=== PATIENT | female | born 1990 | race Caucasian/White ===

== ENCOUNTER 2017-06-24 02:56 | Observation (INO) | payer OTHER ==
[~2017-06-24] VITALS: Ht 147.3 cm; Wt 108.9 kg
[~2017-06-24 02:56] MED LIST: ALBUTEROL0.09 MG/A1 INH; BENTYL10 MG PO; BENTYL20 M1 PO; CYCLOBENZAPRINE5 M2 PO; DULOXETINE HCL30 MG PO; FLUTICASONE PRO16 GM NASB; GUAIFENESIN-COD10 ML PO; MEDROL DOSEPAK1 PAC PO; METOCLOPRAMIDE H5 MG PO; NASONEX0.05 MG/Ac NAS; NASONEX0.05 MG/Ac PO; NITROFURANTOIN100 M4 PO; PERCOCET 325 MG1 TA2 PO; PROAIR HFA8.5 GM INH; ROBITUSSIN W/CO10 ML PO; SKELAXIN800 MG PO; SUMATRIPTAN SU100 M1 PO; TESSALON PERLE100 M1 PO; TESSALON PERLE100 MG PO; VICODIN5-300 PO; ZITHROMAX Z-PA250 M1 PO; ZITHROMAX250 M2 PO; ZITHROMAX500 M2 PO; ZOFRAN ODT4 MG SL; ZOFRAN4 M1 PO; ZOFRAN4 M1 SL
[2017-06-24 03:52] LABS: ABSOLUTE BASOPHIL COUNT 0 /CUMM (0.0-0.2); ABSOLUTE EOSINOPHIL COUNT 0.1 /CUMM (0.0-0.7); ABSOLUTE GRANULOCYTE CT 14.2 /CUMM (1.4-6.5); ABSOLUTE LYMPH COUNT 1.7 /CUMM (1.2-3.4); ABSOLUTE MONOCYTE COUNT 0.5 /CUMM (0.10-0.60); BASOPHIL % 0.1 % (0.0-2.0); EOSINOPHIL % 0.8 % (0-5); GRANULOCYTE % 85.8 % (42.2-75.2); HEMATOCRIT 45.5 % (37-47); MEAN CORPUSCULAR HGB 28.9 PG (27.0-31.0); MEAN CORPUSCULAR HGB CONC 32.9 G/DL (33.0-37.0); MEAN CORPUSCULAR VOLUME 87.9 FL (81.0-99.0); MEAN PLATELET VOLUME 8.9 FL (7.4-10.4); PLATELET COUNT 323 /CUMM (130-400); RBC DISTRIBUTION WIDTH 14.5 % (11.5-14.5); RED BLOOD CELL CT 5.18 /CUMM (4.20-5.40)
--- NOTE | 2017-06-24 03:58 | ED GI/GU/ABDOMINAL COMPLAINT ---
History of Present Illness General Chief Complaint: Abdominal Pain/Flank Pain Stated Complaint: "ABD PAIN VOMITING BLOOD SINCE 2199" Source: patient Exam Limitations: no limitations Vital Signs & Intake/Output Vital Signs & Intake/Output Vital Signs Date Time Temp Pulse Resp B/P B/P Pulse O2 O2 Flow FiO2 Mean Ox Delivery Rate 06/24 1445 98.3 88 18 108/64 98 Room Air 06/24 1434 98.5 77 20 108/78 98 Room Air 06/24 1128 99.4 76 18 110/60 99 Room Air 06/24 0306 99.0 118 20 111/81 97 Room Air Allergies Coded Allergies: Penicillins (ANAPHYLAXIS 09/09/15) amoxicillin (ANAPHYLAXIS 09/09/15) pineapple (ANAPHYLAXIS 09/09/15) morphine (CHEST PAIN, ITCHINESS 12/14/15) Triage Note: PT TO ED C/O +N/V SINCE 2199. STATES ATE "A 4 PIECE" AT [employer] AT 7 PM, SHARP EPIGASTRIC PAIN STARTED AT 2100, THEN +N/V STARTED AT 0. STATES "THE FIRST TIME I VOMITED, IT HAD BLOOD IN IT AND SOME OF IT CAME OUT OF MY NOSE" PT CJURRENTLY VOMITTING BILIOUS GREEN Triage Nurses Notes Reviewed? yes ? N Is pt currently ? No HPI: Patient presents for evaluation of a sudden onset of severe constant sharp abdominal pain radiating to her back that began about 9 PM last night. Patient denies any associated fever or cold symptoms L call use drug use diarrhea or dysuria. She has had a similar episode with a prior case of pancreatitis although this episode is more severe and involves her back. Nothing seems to make her feel better. (Shaye SORENSEN,Gomez Cuellar) Reconcile Medications Albuterol Sulfate (Proair Hfa) 90 MCG HFA.AER.AD 2 PUF INH Q4-6 PRN PRN WHEEZING Doxycycline Hyclate 100 MG TABLET 1 TAB PO BID ABX (Reported) Methylprednisolone (Unknown Strength) TAB.DS.PK (Unknown Dose) UNKNOWN ( Reported) Sumatriptan Succinate 100 MG TABLET 1 TAB PO AD PRN MIGRAINES (Reported) may repeat in 2 hours; do not exceed 200 mg in 24 hours (John SORENSEN,Kamaljit) Past History Travel History Traveled to [place] past 21 day No Medical History Any Pertinent Medical History? 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 No (Gomez Cr MD) Review of Systems Review of Systems Constitutional: Reports: no symptoms. EENTM: Reports: no symptoms. Respiratory: Reports: no symptoms. Cardiovascular: Reports: no symptoms. GI: Reports: see HPI. Genitourinary: Reports: no symptoms. Musculoskeletal: Reports: no symptoms. Skin: Reports: no symptoms. Neurological/Psychological: Reports: no symptoms. Hematologic/Endocrine: Reports: no symptoms. Immunologic/Allergic: Reports: no symptoms. All Other Systems: Reviewed and Negative (Shaye SORENSEN,Gomez Cuellar) Physical Exam Physical Exam Gastrointestinal: SEE BELOW Comments: Gen.: Well-nourished, well-developed, no acute respiratory distress. Overweight. Moderate distress secondary to abdominal pain. Head: Normocephalic, atraumatic. Eyes: Normal inspection bilaterally Ears: Normal inspection bilaterally Nose: Normal inspection Throat/mouth : Moist mucosa Neck: Supple, full range of motion, no goiter Heart: Regular rate and rhythm, no murmurs rubs or gallops Lungs: Clear to auscultation bilaterally with normal air entry Chest: Nontender Back: Normal range of motion Abdomen: Soft, epigastric tenderness with decreased voluntary guarding but no rebound, nondistended, decreased bowel sounds Extremities: Normal range of motion grossly, equal radial pulses, no cyanosis clubbing or edema Neurologic: Cranial nerves grossly intact, speech is clear Skin: warm and dry Psychiatric: Calm, cooperative, no apparent delusions or hallucinations Core Measures ACS in differential dx? No Sepsis Present: No Sepsis Focused Exam Completed? No (Shaye SORENSEN,Gomez Cuellar) Progress Differential Diagnosis: GASTRITIS, GASTROENTERITIS, PEPTIC ULCER DISEASE, PANCREATITIS, BOWEL OBSTRUCTION Plan of Care: Orders Procedure Date/time Status CBC WITHOUT DIFFERENTIAL 06/25 599 Active BASIC ELECTROLYTES PLUS BUN&CR 06/25 599 Active Regular Diet 06/24 D Active Pathway - chart 06/24 1544 Active House Staff 06/24 1544 Active Vital Signs 06/24 1451 Active Teach/Educate 06/24 1451 Active Pain Treatment and Response 06/24 1451 Active Nutritional Intake, Monitor 06/24 1451 Active Isolation 06/24 1451 Active Intake & Output 06/24 1451 Active Patient Care Conference 06/24 1451 Active Activity/Ambulation 06/24 1451 Active URINE DRUG SCREEN FOR ER ONLY 06/24 1304 Complete URINALYSIS 06/24 1304 Complete Patient Data 06/24 1303 Active OXYGEN SETUP (GEN) 06/24 1152 Active Saline Lock 06/[address] in observation 06/24 1152 Active Vital Signs 06/24 1152 Active Activity/Ambulation 06/24 1152 Active Code Status 06/24 1152 Active Add-on Test (ER Only) 06/24 0358 Active Intake & Output 06/24 0342 Active HUMAN BETA HCG SCREEN 06/24 0340 Complete COMPREHENSIVE METABOLIC PANEL 06/24 0340 Complete CBC WITHOUT DIFFERENTIAL 06/24 0340 Complete LIPASE 06/24 0335 Complete VTE Mechanical Prophylaxis 06/24 UNK Active Current Medications Sig/Ubaldo Start time Last Medication Dose Stop Time Status Admin Dicyclomine HCl 20 MG 4 TIMES/DAY 06/24 1800 UNVr (Bentyl) Acetaminophen 650 MG Q6P PRN 06/24 1545 UNVr (Tylenol) Ketorolac 30 MG ONCE ONE 06/24 1545 UNVr Tromethamine 06/24 1546 (Toradol) Ketorolac 15 MG Q6P PRN 06/24 1545 UNVr Tromethamine (Toradol) Oxycodone HCl 10 MG Q6P PRN 06/24 1545 CANr (Roxicodone) Prochlorperazine 5 MG Q6P PRN 06/24 1545 UNVr (Compazine) Sodium Chloride 1,000 ML .[id number] 06/24 1545 UNVr (Normal Saline 0.9%) 06/25 1824 Famotidine 20 MG BID 06/24 1540 UNVr (Pepcid) Morphine Sulfate 4 MG ONCE ONE 06/24 0400 CAN (Morphine) 06/24 0401 Laboratory Tests 06/24/17 1431: Urine Opiates Screen < 100.00, Methadone Screen 71, Barbiturate Screen < 60, Ur Phencyclidine Scrn < 6.00, Amphetamines Screen < 100, U Benzodiazepines Scrn < 85, Urine Cocaine Screen < 50, Urine Cannabis Screen < 5.00, Urine Color YEL, Urine Clarity CLEAR, Urine pH 7.0, Ur Specific [place] 1.020, Urine Protein NEG, Urine Ketones NEG, Urine Nitrite NEG, Urine Bilirubin NEG, Urine Urobilinogen 1.0, Ur Leukocyte Esterase NEG, Ur Microscopic EXAM NOT REQUIRED, Urine Hemoglobin NEG, Urine Glucose NEG 06/24/17 0528: Anion Gap 12, Estimated GFR > 60, BUN/Creatinine Ratio 26.0 H, Glucose 106 H, Calcium 8.0 L, Total Bilirubin 0.6, AST 19, ALT 40, Alkaline Phosphatase 61, Total Protein 6.1 L, Albumin 3.4 L, Globulin 2.7, Albumin/Globulin Ratio 1.3, Lipase 46, Total Beta HCG NEGATIVE 06/24/17 0335: CBC w Diff NO MAN DIFF REQ, RBC 5.18, MCV 87.9, MCH 28.9, MCHC 32.9 L, RDW 14.5 , MPV 8.9, Gran % 85.8 H, Lymphocytes % 10.1 L, Monocytes % 3.2, Eosinophils % 0.8, Basophils % 0.1, Absolute Granulocytes 14.2 H, Absolute Lymphocytes 1.7, Absolute Monocytes 0.5, Absolute Eosinophils 0.1, Absolute Basophils 0 Initial ED EKG: none Comments: 06/24/2017 6:57:07 AM 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 (Shaye SORENSEN,Gomez Cuellar) Diagnostic Imaging: Viewed by Me: CT Scan. Discussed w/RAD: CT Scan. Radiology Impression: 1. There is hepatic steatosis. 2. The gallbladder is surgically absent. 3. Otherwise, unremarkable examination. (John SORENSEN,Kamaljit) Departure Departure Disposition: STILL A PATIENT Condition: Stable Clinical Impression Primary Impression: Vomiting Secondary Impressions: Abdominal pain Referrals: Terri Schmidt DO (PCP/Family) Departure Forms: Customer Survey General Discharge Information (Shaye SORENSEN,Gomez Cuellar) Admission Note Documentation of Exam: Documentation of any treatments & extenuating circumstances including Concerns Regarding Discharge (functional status, medication knowledge or non-compliance, living conditions, etc.) that warrant an admission rather than observation: Observation Note Spoke With: Kelley Hand MD Physician Advisor Notified: KAM SORENSEN,DONG Kwan Place Patient In: Non-ED OBS Care Area Rationale for Observation: My rational for observation is as follows NPL IV fluids IV antiemetics and IV analgesia advance diet medication adjustment continuing care discharge planning. (John SORENSEN,Kamaljit)
[2017-06-24 04:31] LABS: WHITE BLOOD CELL COUNT 16.5 /CUMM (4.8-10.8)
--- NOTE | 2017-06-24 08:28 | CT SCAN REPORT ---
EXAMINATION: CT ABDOMEN AND PELVIS WITH CONTRAST CLINICAL INFORMATION: Epigastric pain; history of pancreatitis. COMPARISON: CT abdomen and pelvis dated 09/09/2015. TECHNIQUE: Multidetector volumetric imaging was performed of the abdomen and pelvis following IV administration of 80 mL of Optiray 320 intravenous contrast. Sagittal and coronal reformatted images were obtained on the technologist's workstation. DLP: 1362.31 mGy-cm FINDINGS: LUNG BASES: The visualized lung bases are unremarkable. LIVER, GALLBLADDER, AND BILIARY TREE: The liver is normal in size, shape, and diminished in attenuation. No focal hepatic lesion or biliary ductal dilatation is present. The gallbladder is surgically absent. PANCREAS: Unremarkable. No focal enlargement or differential enhancement is seen. There is no mass. No peripancreatic fat stranding or acute fluid collection seen. SPLEEN: Unremarkable. ADRENAL GLANDS: Unremarkable. KIDNEYS AND URETERS: The kidneys are normal in size, shape, and attenuation. No hydronephrosis, hydroureter, or calculi seen. No perinephric stranding. BLADDER: Unremarkable. GASTROINTESTINAL TRACT: The small and large bowel are unremarkable. The appendix is unremarkable. ABDOMINAL WALL: There is a very small fat-containing umbilical hernia. LYMPH NODES: There are shotty, nonpathologically enlarged mesenteric lymph nodes. No sizable abdominopelvic lymphadenopathy is seen. VASCULAR: Unremarkable. PELVIC VISCERA: Unremarkable. OSSEOUS STRUCTURES: Unremarkable. IMPRESSION: 1. There is hepatic steatosis. 2. The gallbladder is surgically absent. 3. Otherwise, unremarkable examination.
[2017-06-24] MEDS ORDERED: DOXYCYCLINE HY100 M4 PO (12:25)
[2017-06-24] MEDS ORDERED: METHYLPREDNISOLO4 M2 (12:25)
--- NOTE | 2017-06-24 14:04 | History & Physical ---
Sina Orozco 06/24/17 1403: General Information and HPI MD Statement: I have seen and personally examined PADMAJA CALLOWAY and documented this H&P. The patient is a 27 year old F who presented with a patient stated chief complaint of [nausea]. Source of Information: patient Exam Limitations: no limitations History of Present Illness: Ms. Calloway is a 27-year-old female with significant past medical history of asthma and migraine disorder who presents to [facility] emergency department with complaints of nausea, vomiting and abdominal pain. She states that it started last night, approximately 9pm, 2 or 3 hours after eating fast food. She states that the nausea started first, followed by vomiting and then abdominal pain. She states she has had multiple bouts of vomiting, too numerous to count. Her vomitus was initially yellow and bilious, however later had some streaks/blood clots. She denies any gail blood per mouth. She denies any dark stools. She does mention one bout of diarrhea since coming to the hospital approximately 2 AM. Regarding her abdominal pain, she localizes it to the epigastric area, and states that it radiates to her sides and back. She denies any fever, chills, diaphoresis. She also denies any recent sick contacts or travel. The illicit substance use. She denies any alcohol use. Of note, she states that a little over 1 week ago, she had bronchitis for which she started taking doxycycline however did not tolerate it, and was switched to azithromycin. She did not fill her azithromycin prescription. She states that she was also prescribed prednisone which she did not fill. She offers no other acute complaints. She states that the anti-emetic meds given in the ER have reduced her nausea significantly, but she is still having some crampy abdominal pain. Her vitals on admission were Temperature 90.9, heart rate 118, respiratory rate 20, blood pressure 111/81 saturating 97% on room air. Her lab work is relatively unremarkable however she does have an elevated white count 16.5. H&H 15/45.5. Her basic electrolyte panel was unremarkable. Her serum beta-hCG is negative. CT of the abdomen/pelvis with IV contrast demonstrated hepatic steatosis. Allergies/Medications Allergies: Coded Allergies: Penicillins (ANAPHYLAXIS 09/09/15) amoxicillin (ANAPHYLAXIS 09/09/15) pineapple (ANAPHYLAXIS 09/09/15) morphine (CHEST PAIN, ITCHINESS 12/14/15) Home Med list Albuterol Sulfate (Proair Hfa) 90 MCG HFA.AER.AD 2 PUF INH Q4-6 PRN PRN WHEEZING Doxycycline Hyclate 100 MG TABLET 1 TAB PO BID ABX (Reported) Methylprednisolone (Unknown Strength) TAB.DS.PK (Unknown Dose) UNKNOWN ( Reported) Sumatriptan Succinate 100 MG TABLET 1 TAB PO AD PRN MIGRAINES (Reported) may repeat in 2 hours; do not exceed 200 mg in 24 hours Compliance With Home Meds: GOOD Past History Travel History Traveled to [place] past 21 day No Medical History Neurological: "FAINTING SPELLS" "DIZZY SPELLS" EENT: NONE Cardiovascular: NONE Respiratory: asthma Gastrointestinal: pancreatitis Hepatic: NONE Renal: NONE Musculoskeletal: CHRONIC BACK/NECK PAIN ?DISK PROBLEM Psychiatric: NONE Endocrine: NONE Blood Disorders: NONE 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 Exam & Diagnostic Data Last 24 Hrs of Vital Signs/I&O Vital Signs Date Time Temp Pulse Resp B/P B/P Pulse O2 O2 Flow FiO2 Mean Ox Delivery Rate 06/24 1445 98.3 88 18 108/64 98 Room Air 06/24 1434 98.5 77 20 108/78 98 Room Air / 1128 99.4 76 18 110/60 99 Room Air / 0306 99.0 118 20 111/81 97 Room Air Intake & Output 06/24 1600 06/24 0800 06/24 0000 Intake Total 0 Output Total Balance 0 Intake, Oral 0 Patient 108.862 kg 108.862 kg Weight Weight Reported by Patient Measurement Method Physical Exam General Appearance Alert, Oriented X3, Cooperative, No Acute Distress Skin No Rashes, No Significant Lesion Skin Temp/Moisture Exam: Warm/Dry HEENT Atraumatic, EOMI, Mucous Membr. moist/pink, No obvious location of bleeding on inspection Neck Supple Cardiovascular Regular Rate, Normal S1, Normal S2 Lungs Clear to Auscultation, Normal Air Movement Abdomen Normal Bowel Sounds, Soft, Truncal obesity. Mild epigastric tenderness. No tenderness at McBurney's point. Pedersen's sign negative. No significant guarding noted. No rigidity. Extremities No Clubbing, No Edema, No Tenderness/Swelling Last 24 Hrs of Labs/Yaniv: Laboratory Tests 06/24/17 1431: Urine Opiates Screen < 100.00, Methadone Screen 71, Barbiturate Screen < 60, Ur Phencyclidine Scrn < 6.00, Amphetamines Screen < 100, U Benzodiazepines Scrn < 85, Urine Cocaine Screen < 50, Urine Cannabis Screen < 5.00, Urine Color YEL, Urine Clarity CLEAR, Urine pH 7.0, Ur Specific [place] 1.020, Urine Protein NEG, Urine Ketones NEG, Urine Nitrite NEG, Urine Bilirubin NEG, Urine Urobilinogen 1.0, Ur Leukocyte Esterase NEG, Ur Microscopic EXAM NOT REQUIRED, Urine Hemoglobin NEG, Urine Glucose NEG 06/24/17 0528: Anion Gap 12, Estimated GFR > 60, BUN/Creatinine Ratio 26.0 H, Glucose 106 H, Calcium 8.0 L, Total Bilirubin 0.6, AST 19, ALT 40, Alkaline Phosphatase 61, Total Protein 6.1 L, Albumin 3.4 L, Globulin 2.7, Albumin/Globulin Ratio 1.3, Lipase 46, Total Beta HCG NEGATIVE 06/24/17 0335: CBC w Diff NO MAN DIFF REQ, RBC 5.18, MCV 87.9, MCH 28.9, MCHC 32.9 L, RDW 14.5 , MPV 8.9, Gran % 85.8 H, Lymphocytes % 10.1 L, Monocytes % 3.2, Eosinophils % 0.8, Basophils % 0.1, Absolute Granulocytes 14.2 H, Absolute Lymphocytes 1.7, Absolute Monocytes 0.5, Absolute Eosinophils 0.1, Absolute Basophils 0 Diagnostic Data Other Results SERVICE DATE: 06/24/17 EXAM TYPE: CAT - CT ABD & PELVIS W IV CONTRAST EXAMINATION: CT ABDOMEN AND PELVIS WITH CONTRAST CLINICAL INFORMATION: Epigastric pain; history of pancreatitis. COMPARISON: CT abdomen and pelvis dated 09/09/2015. TECHNIQUE: Multidetector volumetric imaging was performed of the abdomen and pelvis following IV administration of 80 mL of Optiray 320 intravenous contrast. Sagittal and coronal reformatted images were obtained on the technologist's workstation. DLP: 1362.31 mGy-cm FINDINGS: LUNG BASES: The visualized lung bases are unremarkable. LIVER, GALLBLADDER, AND BILIARY TREE: The liver is normal in size, shape, and diminished in attenuation. No focal hepatic lesion or biliary ductal dilatation is present. The gallbladder is surgically absent. PANCREAS: Unremarkable. No focal enlargement or differential enhancement is seen. There is no mass. No peripancreatic fat stranding or acute fluid collection seen. SPLEEN: Unremarkable. ADRENAL GLANDS: Unremarkable. KIDNEYS AND URETERS: The kidneys are normal in size, shape, and attenuation. No hydronephrosis, hydroureter, or calculi seen. No perinephric stranding. BLADDER: Unremarkable. GASTROINTESTINAL TRACT: The small and large bowel are unremarkable. The appendix is unremarkable. ABDOMINAL WALL: There is a very small fat-containing umbilical hernia. LYMPH NODES: There are shotty, nonpathologically enlarged mesenteric lymph nodes. No sizable abdominopelvic lymphadenopathy is seen. VASCULAR: Unremarkable. PELVIC VISCERA: Unremarkable. OSSEOUS STRUCTURES: Unremarkable. IMPRESSION: 1. There is hepatic steatosis. 2. The gallbladder is surgically absent. 3. Otherwise, unremarkable examination. Assessment/Plan Assessment: Ms. Calloway is a 27-year-old female with significant past medical history of asthma and migraine disorder who presents to [facility] emergency department with complaints of nausea, vomiting and abdominal pain. Problem List/Assessment and Plan Intractable nausea with vomiting * Place on General Medicine for observation * Given the timing of her nausea and vomiting, shortly after her food, she may have gastroenteritis. * There are many causes of gastroenteritis, both viral and bacterial. * In the short incubation period, possible etiologies may be bacillus cereus, clostridium, Escherichia coli, Salmonella, vibrio. hemolyticus or staphylococcus aureus. * More likely, her etiology is Staphylococcus aureus or bacillus cereus given the type of food she ingested and that they have pre-formed toxins which allow the symptom onset to occur 1-6h after ingestion. * We will treat her symptomatically with fluid hydration, as well as anti- emetics. * We will repeat her blood work tomorrow to make sure she doesn't have any electrolyte abnormalities or acid-base disequilibrium, and to further evaluate her leukocytosis. * Given her lack of temperature, I am less inclined to believe that this is a systemic infection, and that most likely her white blood cell count is high due to dehydration given her multiple episodes of emesis. * Additionally, for her spasms/cramping we will consider dicyclomine, however this can also worsen her nausea and certain cases. If she does not improve with Compazine and NSAID analgesics, we will consider adding dicyclomine. Full code Pain pathways as ordered Alps for DVT prophylaxis Regular diet as tolerated As Ranked By This Provider Problem List: 1. Nausea & vomiting 2. Enteritis 3. Abdominal pain Core Measures/Misc (02/05) Acute Coronary Syndrome ACS Diagnosis: No Congestive Heart Failure Congestive Heart Failure Diagnosis No Cerebrovascular Accident CVA/TIA Diagnosis: No VTE (View Protocol) VTE Risk Factors No risk factors No Mechanical VTE Prophylaxis d/t N/A MechProphylax Ordered No VTE Pharm Prophylaxis d/t LowRisk-No Interven Req'd Sepsis (View protocol) Sepsis Present: No Kelley Hand MD 06/24/17 1602: Attending MD Review Statement Attending Statement Attending MD Statement: examined this patient, discuss w/resident/PA/ABALONE DIVER, agreed w/resident/PA/ABALONE DIVER, reviewed EMR data (avail), discussed with nursing, reviewed images Attending Assessment/Plan: 27-year-old female asked medical history of gallstone pancreatitis status post cholecystectomy and ovarian cyst who is here with acute nausea and vomiting with one episode of diarrhea. Patient ate some food from [employer] and symptoms started shortly after that. She's had multiple episodes of vomiting and one was slightly blood streaked. She aches all over from the vomiting she has significant nausea and she had one episode of diarrhea. She is not with a negative hCG test, she has an elevated white count and appears clinically dehydrated with a crit of 45. Her liver enzymes are normal, her CT with IV contrast was essentially normal. At this point I think this is all either a viral gastroenteritis or a staphylococcal food poisoning with preformed toxin. Will bring her in as an observation, hydrate her, do supportive care with antiemetics, IV Pepcid and follow closely.
[2017-06-24 14:45] VITALS: BP 108/64
[2017-06-24 22:30] VITALS: BP 110/68
[2017-06-25 07:07] VITALS: BP 107/70
--- NOTE | 2017-06-25 09:13 | Patient Discharge Instructions ---
Discharge Instructions General Discharge Information Special Instructions: - Please follow up with your primary care physician within 1-2 week of discharge. Inform your primary care physician of this admission to [facility]. - Continue your current medications per discharge instructions. - Please watch for these problems: Fever, Chills, Nausea, Vomiting, Shortness of Breath, Productive Cough, Chest Pain/Discomfort, Abdominal Pain, Active Bleeding or Bloody urine/stool. Diet Continue normal diet: Yes Activity Full Activity/No Limits: Yes Acute Coronary Syndrome Inclusion Criteria At DC or during hospital stay patient has or had the following: ACS DIAGNOSIS No Discharge Core Measures Meds if any: Prescribed or Continued at Discharge Meds if any: NOT Prescribed or Continued at Discharge Congestive Heart Failure Inclusion Criteria At DC or during hospital stay patient has or had the following: CHF DIAGNOSIS No Discharge Core Measures Meds if any: Prescribed or Continued at Discharge Meds if any: NOT Prescribed or Continued at Discharge Cerebrovascular accident Inclusion Criteria At DC or during hospital stay patient has or had the following: CVA/TIA Diagnosis No Discharge Core Measures Meds if any: Prescribed or Continued at Discharge Meds if any: NOT Prescribed or Continued at Discharge Venous thromboembolism Inclusion Criteria VTE Diagnosis No VTE Type NONE VTE Confirmed by (Test) NONE Discharge Core Measures - Per Current guidelines, there needs to be overlap - treatment for the first 5 days of Warfarin therapy. - If discharged on Warfarin prior to 5 days of - overlap therapy, the patient will need to be - assessed for post discharge needs including - *Post discharge parental anticoagulation - *Warfarin and/or parental anticoagulation education - *Follow up date to check INR post discharge At least 5 days overlap therapy as Inpatient No Meds if any: Prescribed or Continued at Discharge Note: Overlap Therapy is Warfarin and Anticoagulant Meds if any: NOT Prescribed or Continued at Discharge
--- NOTE | 2017-06-25 09:13 | PN-Observation ---
Deepali Stewart Zhoukaylan Vinson 06/25/17 0913: Observation Note Observation Note _ I have personally examined PADMAJA CRANDALL. her disposition is uncertain at this time. Before a determination can be made, she requires continued observation for the following reasons [Gastroenteritis]. Assessment/Plan Assessment: Ms. Crandall is a 27-year-old female with significant past medical history of asthma and migraine disorder who presents to [facility] emergency department with complaints of nausea, vomiting and abdominal pain. Patient had improved overnight with hydration and supportive care. Problem List: 1. Vomiting Plan: Intractable nausea with vomiting * Gastroenteritis likely 2/2 S.Aureus preformed toxin. * Leukocytosis resolved today. Afebrile. * Will discharge with Zofran and PPI, and percocet PRN for pain. Advised to f.u with PCP in 1 week. Full code Alps for DVT prophylaxis Regular diet as tolerated Subjective Follow-up For: Intractable nausea with vomiting Subjective: No complaint. felt improved from yesterday without no more N/V Review of Systems Constitutional: Reports: see HPI. Objective Last 24 Hrs of Vital Signs/I&O Vital Signs Date Time Temp Pulse Resp B/P B/P Pulse O2 O2 Flow FiO2 Mean Ox Delivery Rate 06/25 0707 97.3 57 20 107/70 100 Room Air 06/24 2230 98.2 77 18 110/68 98 / 1445 98.3 88 18 108/64 98 Room Air / 1434 98.5 77 20 108/78 98 Room Air Intake & Output 06/25 1600 06/25 0800 06/25 0000 Intake Total 520 720 Output Total Balance 520 720 Intake, IV 400 600 Intake, Oral 120 120 Physical Exam General Appearance: Alert, Oriented X3, Cooperative, No Acute Distress Cardiovascular: Regular Rate Lungs: Clear to Auscultation, Normal Air Movement Abdomen: Normal Bowel Sounds, Soft, No Tenderness Neurological: Normal Speech Extremities: No Edema, Normal Pulses Current Medications: Current Medications Sig/Ubaldo Start time Last Medication Dose Route Stop Time Status Admin Acetaminophen 650 MG Q6P PRN 06/24 1545 AC 06/24 PO 1720 Dicyclomine HCl 20 MG 4 TIMES/DAY 06/24 1800 CAN PO Famotidine 20 MG BID 06/24 1540 AC 06/25 IV 0844 Influenza Virus 0.5 ML ONCE ONE 06/24 1515 DC Vaccine IM 06/24 1516 Ketorolac 15 MG Q6P PRN 06/24 2200 AC 06/25 Tromethamine IV 0435 Ketorolac 30 MG ONCE ONE 06/24 1545 DC 06/24 Tromethamine IV 06/24 1546 1608 Oxycodone HCl 10 MG Q6P PRN 06/24 1545 CAN PO Prochlorperazine 5 MG Q6P PRN 06/24 1545 DC 06/24 IV 1712 Promethazine HCl 12.5 MG Q6-PRN PRN 06/24 204 AC 06/25 IV 07/01 2043 0434 Sodium Chloride 1,000 ML .[id number] 06/24 1545 DC 06/24 IV 06/25 0504 1608 Last 24 Hrs of Labs/Mics: Laboratory Tests 06/25/17 0810: Anion Gap 9, Estimated GFR > 60, BUN/Creatinine Ratio 10.0, CBC w Diff NO MAN DIFF REQ, RBC 4.43, MCV 89.0, MCH 29.8, MCHC 33.5, RDW 14.9 H, MPV 8.9, Gran % 52.9, Lymphocytes % 37.6, Monocytes % 6.3, Eosinophils % 2.7, Basophils % 0.5, Absolute Granulocytes 2.6, Absolute Lymphocytes 1.9, Absolute Monocytes 0.3, Absolute Eosinophils 0.1, Absolute Basophils 0 06/24/17 1431: Urine Opiates Screen < 100.00, Methadone Screen 71, Barbiturate Screen < 60, Ur Phencyclidine Scrn < 6.00, Amphetamines Screen < 100, U Benzodiazepines Scrn < 85, Urine Cocaine Screen < 50, Urine Cannabis Screen < 5.00, Urine Color YEL, Urine Clarity CLEAR, Urine pH 7.0, Ur Specific [place] 1.020, Urine Protein NEG, Urine Ketones NEG, Urine Nitrite NEG, Urine Bilirubin NEG, Urine Urobilinogen 1.0, Ur Leukocyte Esterase NEG, Ur Microscopic EXAM NOT REQUIRED, Urine Hemoglobin NEG, Urine Glucose NEG Yazan SORENSEN,Kelley 06/25/17 1033: Observation Note Observation Note _ I have personally examined PADMAJA CRANDALL. her disposition is uncertain at this time. Before a determination can be made, she requires continued observation for the following reasons. 27-year-old female past medical history of gallstone pancreatitis status post cholecystectomy and ovarian cyst and a history of migraines who is here with severe intractable nausea and vomiting. I think she probably had a gastroenteritis likely a preformed toxin like Staphylococcus which presented with mostly nausea and vomiting and only one episode of diarrhea. We observed her overnight, hydrated her, treated her with supportive care. She is doing well today she's had no more episodes of vomiting, no diarrhea and she ate her breakfast. Will follow the white count today and if it's coming down she can safely be discharged. I'll give her some by mouth Protonix for a few days (OTC) and some Zofran to go home with. She knows she needs to follow-up with Terri Schmidt DO in the next 3-5 days. She is requesting something for pain should it become very severe and will give her 6 tablets of Percocet to go home with.
[2017-06-25] MEDS ORDERED: PERCOCET 5-3251 EACH PO ×2 (09:17→09:19)
[2017-06-25] MEDS ORDERED: ZOFRAN ODT4 M1 SL ×2 (09:17→09:19)
[2017-06-25 09:24] LABS: ABSOLUTE BASOPHIL COUNT 0 /CUMM (0.0-0.2); ABSOLUTE EOSINOPHIL COUNT 0.1 /CUMM (0.0-0.7); ABSOLUTE GRANULOCYTE CT 2.6 /CUMM (1.4-6.5); ABSOLUTE LYMPH COUNT 1.9 /CUMM (1.2-3.4); ABSOLUTE MONOCYTE COUNT 0.3 /CUMM (0.10-0.60); BASOPHIL % 0.5 % (0.0-2.0); EOSINOPHIL % 2.7 % (0-5); GRANULOCYTE % 52.9 % (42.2-75.2); MEAN CORPUSCULAR HGB 29.8 PG (27.0-31.0); MEAN CORPUSCULAR HGB CONC 33.5 G/DL (33.0-37.0); MEAN PLATELET VOLUME 8.9 FL (7.4-10.4); PLATELET COUNT 224 /CUMM (130-400); RBC DISTRIBUTION WIDTH 14.9 % (11.5-14.5); RED BLOOD CELL CT 4.43 /CUMM (4.20-5.40)
[2017-06-25 10:53] LABS: HEMATOCRIT 39.4 % (37-47)
== END 2017-06-25 13:23 ==
LOC: ERH 02:56 → ERHI 11:52 → ENRESERV 13:37 → ENTRNSPT 14:27 → 2NA 14:40 → CMPTRNSPT 14:54 → ENPENDDIS 06-25 11:10 → 2NA 06-25 13:23
PROVIDERS: Emergency Medicine; Internal Medicine Cardiovascular Disease
DX: K52.9 Noninfective gastroenteritis and colitis, unspecified (principal); R11.2 Nausea with vomiting, unspecified; R10.9 Unspecified abdominal pain; J45.909 Unspecified asthma, uncomplicated; G43.909 Migraine, unspecified, not intractable, without status migrainosus; M54.9 Dorsalgia, unspecified; M54.2 Cervicalgia; D72.829 Elevated white blood cell count, unspecified; R19.7 Diarrhea, unspecified
CPT/HCPCS: 6030; 74177; 80307; 81003; 82436; 93005; 93010; 96374; 96375; 96376; G0378; J0131; J0780; J1200; J1885; J2405; J2550; J2765